=== PATIENT | male | born 1945 | race Caucasian/White ===

== ENCOUNTER 2021-03-22 13:23 | Outpatient (RCR) | payer MEDICARE, SELFPAY ==
[2021-03-22 13:35] LABS: Abs Immature Grans 0.06 10^3/uL (0.0-0.06); Absolute Basophil Count 0.07 10^3/uL (0.0-0.2); Absolute Eosinophil Count 0.13 10^3/uL (0.0-0.7); Absolute Lymphocyte Count 2.08 10^3/uL (1.2-3.4); Absolute Monocyte Count 1.06 10^3/uL (0.1-0.8); Absolute Neutrophil Count 8.24 10^3/uL (1.2-6.7); Basophils % 0.6; Eosinophils % 1.1; HGB 15.8 g/dL (13.5-17.5); Immature Grans % 0.5; Lymphocytes % 17.9; MCH 31.6 pg (27.0-33.0); MCHC 35.1 % (32.0-36.0); MPV 8.7 fL (8.0-11.0); Monocytes % 9.1; Neutrophils % 70.8; Nucleated RBC 0 %; Platelet Count 178 10^3/uL (130-400); RDW 13.1 % (11.8-14.1); RDW-SD 42.5 fL; WBC 11.64 10^3/uL (4.4-10.8)
[2021-03-22 13:55] LABS: ALT 32 U/L (16-63); AST 21 U/L (15-37); Alkaline Phosphatase 53 U/L (46-116); BUN 29 mg/dL (7-18); Bilirubin, Total 1.6 mg/dL (0.2-1.0); CREATININE 1.3 mg/dL (0.70-1.30); Calcium 9.6 mg/dL (8.5-10.1); Chloride 103 mmol/L (98-107); Estimated GFR 54.11 (mL/min/1.73m2); Glucose 106 mg/dL (74-106); LDH 195 U/L (85-227); Potassium 3.5 mmol/L (3.5-5.1); Sodium 141 mmol/L (136-145)
== END 2021-04-16 23:59 | disposition home or self-care (01) ==
LOC: INF 13:23
PROVIDERS: Visit Provider Internal Medicine Hematology & Oncology
DX: C82.08 Follicular lymphoma grade I, lymph nodes of multiple sites (principal)
CPT/HCPCS: 36415; 80053; 83615; 85025